=== PATIENT | male | born 1945 | race Caucasian/White ===

== ENCOUNTER 2019-04-27 15:16 | Inpatient (IN) ==
--- NOTE | 2019-04-27 16:45 | PROVIDER DOCUMENTATION ---
HPI-Respiratory General - General Chief Complaint: Shortness of Breath Stated Complaint: FLUID Time Seen by Provider: 04/27/19 16:24 Allergies/Adverse Reactions: Patient Allergies Allergy/AdvReac Type Severity Reaction Status Date / Time No Known Allergies Allergy Verified 08/07/17 16:28 Home Medications: Home Medication List Medication Instructions Recorded Confirmed Last Taken Type Pantoprazole [Protonix] 40 mg PO DAILY 08/13/16 04/27/19 08/07/17 08:00 History Tamsulosin [Flomax] 0.4 mg PO DAILY 08/13/16 04/27/19 08/07/17 08:00 History Acetaminophen [Tylenol] 500 mg PO PRN PRN 08/07/17 04/27/19 Unknown History Albuterol 2.5MG/Ipratrop 0.5MG 3 ml INH RTQ4H #100 neb 08/10/17 04/27/19 Unknown Rx [Duoneb (A & A)] Metoprolol Succinate E.r. [Toprol 25 mg PO HS tablet 08/10/17 04/27/19 Unknown Rx Xl] Metoprolol Succinate E.r. [Toprol 50 mg PO DAILY tablet 08/10/17 04/27/19 Unknown Rx Xl] Pregabalin [Lyrica] 50 mg PO HS PRN PRN capsule 08/10/17 04/27/19 Unknown Rx Zolpidem [Ambien] 10 mg PO HS tablet 08/10/17 04/27/19 Unknown Rx Clopidogrel Bisulfate [Plavix] 75 mg PO DAILY 04/27/19 04/27/19 Unknown History Levalbuterol Neb [Xopenex Neb] 1.25 mg NEB Q3HR 04/27/19 04/27/19 Unknown History Rosuvastatin Calcium [Crestor] 20 mg PO DAILY 04/27/19 04/27/19 Unknown History - History of Present Illness-Resp Nature of Presenting Problem: 74y/o male with background h/o DM, HTN, HLD, Gerd, Lung Ca diagnosed in 2016 s/p chemotherapy reports SOB of about 3 weeks duration. He states he had lung infection based on PET scan done and had completed a 10 day course of levaquine 3 days ago. He was recently placed on Zpak about 2 days ago due to persistence of sxs and later had CXR and CT lungs which revealed plural effusion on the right lung with evidence of lung cancer and has been sent to the ER for thoracentesis Quality of Pain: reports: other (SOB- See HPI) Onset/Duration: reports: other (SOB of about 3 weeks duration) Timing: reports: still present Cough Quality/Degree: reports: no cough Episode Frequency: occasional episodes Modifying Factors: improves with: nothing Associated Symptoms: reports: shortness of breath (as his only complaint) Similar Symptoms Previously?: Yes (about 3 yrs ago) Review of Systems - Adult - REVIEW OF SYSTEMS - ADULT Constitutional: reports: see HPI Eyes: reports: no symptoms reported Ears, Nose, Mouth & Throat: reports: no symptoms reported Cardiovascular: reports: no symptoms reported Respiratory: reports: shortness of breath Gastrointestinal: reports: no symptoms reported Genitourinary: reports: no symptoms reported Musculoskeletal: reports: no symptoms reported Integumentary: reports: no symptoms reported Neurological: reports: no symptoms reported Psychiatric: reports: no symptoms reported All Other Systems: Reviewed and Negative Past History - Adult - PAST MEDICAL HISTORY-ADULT Review of Records: reports: Nursing Assessment Review, Medications Reviewed, Social history reviewed & non-contributory. Cardiovascular: reports: CAD (s/p Stent placement in 2018), hyperlipidemia Respiratory: reports: lung disease (ca lung) Gastrointestinal: reports: GERD Genitourinary: reports: other (urinary retension improved on flomax) Musculoskeletal: reports: denies history Neurological: reports: denies history Psychiatric: reports: denies history Diabetes Type: Type 2 - PRIOR SURGERIES/PROCEDURES Surgical/Procedure History: reports: cardiac stent (2018), other (thoracentesis about 3 yrs ago) - IMMUNIZATION STATUS Childhood Immunizations: See Nurse Assessment Flu Vaccine: See Nurse Assessment - FAMILY HISTORY Family History: reviewed, not pertinent - SOCIAL HISTORY Smoking: cigarettes (smoked for many years. started in child nuñez and quit 4years ago) Substance Use: none/never Alcohol Use Frequency: never Living Situation: family Physical Exam-General - CONSTITUTIONAL General Appearance: alert, no apparent distress (but on 2 liter 02 NC) - EYES Eyes: PERRL/EOMI - HEAD, EARS, NOSE, MOUTH & THROAT HENMT: normocephalic/atraumatic - NECK Neck: non-tender, full range of motion - RESPIRATORY Respiratory: chest non-tender, decreased breath sounds (right side), crackles (right side) - CARDIOVASCULAR Cardiovascular: regular rate, rhythm, no edema, no JVD - GASTROINTESTINAL (ABDOMEN) Abdominal Exam: non tender, soft, no organomegaly - MUSCULOSKELETAL Back Exam: normal inspection Extremity: non-tender, no pedal edema, no calf tenderness - SKIN Integumentary: normal color - PSYCHIATRIC Psych/Mental Status: normal mood/affect, normal thought content, oriented x 3, disoriented x 3 Progress - PLAN OF CARE/RESULTS Progress/Plan/Lab Results: Vital Signs - 8 hr 04/27/19 15:21 Temperature 97.9 F Pulse Rate 97 H Respiratory Rate 23 Blood Pressure 181/72 O2 Sat by Pulse Oximetry 88 L Laboratory Results - last 24 hr 04/27/19 04/27/19 04/27/19 18:00 18:00 18:00 WBC 12.67 H RBC 3.57 L Hgb 11.9 L Hct 34.3 L MCV 96.1 MCH 33.3 H MCHC 34.7 RDW Std Deviation 13.8 Plt Count 247 MPV 10.2 Immature Gran % (Auto) 0.3 Neut % (Auto) 85.0 H Lymph % (Auto) 7.7 L [place] % (Auto) 5.0 Eos % (Auto) 1.7 Baso % (Auto) 0.3 Immature Gran # (Auto) 0.04 Neut # (Auto) 10.76 H Lymph # (Auto) 0.98 L [place] # (Auto) 0.63 H Eos # (Auto) 0.22 Baso # (Auto) 0.04 PT 14.6 INR 1.12 PTT (Actin FS) 39.4 Sodium Potassium Chloride Carbon Dioxide Anion Gap BUN Creatinine Estimated GFR/1.73 m2 BUN/Creatinine Ratio Glucose Calculated Osmolality Calcium Total Bilirubin AST ALT Alkaline Phosphatase Fox-H-Unbajlhokcv Pept Total Protein Albumin Globulin Albumin/Globulin Ratio 04/27/19 04/27/19 18:00 18:00 WBC RBC Hgb Hct MCV MCH MCHC RDW Std Deviation Plt Count MPV Immature Gran % (Auto) Neut % (Auto) Lymph % (Auto) [place] % (Auto) Eos % (Auto) Baso % (Auto) Immature Gran # (Auto) Neut # (Auto) Lymph # (Auto) [place] # (Auto) Eos # (Auto) Baso # (Auto) PT INR PTT (Actin FS) Sodium 142 Potassium 4.0 Chloride 107 Carbon Dioxide 22 L Anion Gap 13 BUN 15 Creatinine 1.0 Estimated GFR/1.73 m2 > 60 BUN/Creatinine Ratio 15 Glucose 112 H Calculated Osmolality 285 Calcium 9.4 Total Bilirubin 0.83 AST 13 ALT 13 Alkaline Phosphatase 138 H [id number]-[id number] Pept 1770 H Total Protein 7.3 Albumin 3.8 Globulin 3.5 Albumin/Globulin Ratio 1.1 Orders Category Date Time Status CBC WITH DIFF [HEME] Stat Lab 04/27/19 18:00 Completed CMP [COMPREHENSIVE METABOLIC PANEL] [CHEM] Stat Lab 04/27/19 18:00 Completed PRO B-NATRIURETIC PEPTIDE Stat Lab 04/27/19 18:00 Completed PROTIME WITH INR [COAG] Stat Lab 04/27/19 18:00 Completed PTT [COAG] Stat Lab 04/27/19 18:00 Completed Lung Ca diagnosed in 2016 s/p chemotherapy reports SOB of about 3 weeks duration. recent xray reveals CXR pneumonia right lung and CT lungs which revealed plural effusion on the right lung with evidence of lung cancer and he is being considered for thoracentesis Result Diagrams: 04/27/19 18:00 04/27/19 18:00 - EKG 1 Time of EKG reading by physician:: 15:30 [place]: normal ME Interval: normal ST Wave: non-specific ST changes - XRAY 1 XRAY Study: Chest Impression: See EMR Report ( Patient: EVERETT RANGEL Date: 04/26/19MR#: [id number] : 1945DM Status: REG CLIAcct#: [id number] Age/Sex: 74/MRoom/Bed: Loc: [facility] Ordering Physician: Igor Galaviz MD Family Physicia n: Erick Lopez MD Reason for Procedure: SOB,LUNG CA Signed EXAM: CHEST-2 VIEWS 04/26/2019 HISTORY: SOB,LUNG CA TECHNIQUE: PA and lateral chest COMMENT: There is blunting of the right costophrenic angle laterally which was also present on 06/23/2018 and is probably at least in part due to fibrosis. Compared to the previous study there is more basilar opacity in the lower lobes with obscuration of the left hemidiaphragm. There is more opacity in the lower mid lung field on the right side than on the previous study. The heart size and pulmonary vascularity are within normal limits. IMPRESSION: Bibasilar atelectasis versus pneumonia superimposed on fibrotic changes. Electronically signed by Martin Ellis 04/26/2019 2:34 PM 04/26/19 1434 Interpreting Physician: Martin Ellis MD Dictated Date/Time: 04/26/19 1432 cc: Igro Galaviz MD; Erick Lopez MD) - CT/MRI 1 CT Study: other (chest) Impression: See EMR Report ( Patient: EVERETT RANGEL Date: 04/27/19MR#: [id number] : 1945DM Status[facility] CLIAcct#: [id number] Age/Sex: 74/MRoom/Bed: Loc: CT Ordering Physician: Igor Galaviz MD Family Physician: Erick Lopez MD Reason for Procedure: malignant neoplasm of bronchus and lung Signed EXAM: CT THORAX W/CONTRAST 04/27/2019 HISTORY: malignant neoplasm of bronchus and lung TECHNIQUE: This exam was performed using automated exposure control, adjustment of mA or kV according to patient size, and/or use of iterative reconstruction technique. COMMENT: The current study is compared with the previous examination of 02/07/2018. There are atherosclerotic calcifications in the aorta and its branches. There are nonspecific aorticopulmonary window nodes one of which measures over 16 mm in long axis. This has increased in size since the previous examination. There are some calcified nodes in the precarinal and right hilar region. There is a small amount of pleural fluid on the left and a larger effusion on the right. The latter may be partially loculated. There is also some fluid apparently loculated in the anterior medial left pleural space. There are severe emphysematous changes. There is narrowing of the bronchus intermedius. There has been some improvement in this regard since the previous examination. There are multiple irregular opacities present in the right upper lobe most notably laterally on image 81. This was not present at the time the previous study. It measures 18 mm in diameter. There are several scattered granulomata which have not changed in appearance since the previous studies. There is pleural thickening and volume loss in the right middle lobe which was not present previously. The regional skeleton is stable in appearance. IMPRESSION: Improved narrowing of the bronchus intermedius. Worsened pleural fluid collections. New opacities in the right upper lobe, the possibility of recurrent or metachronous malignancy cannot be excluded. Electronically signed by Martin Ellis 04/27/2019 1:12 PM 04/27/19 1312 Interpreting Physician: Martin Ellis MD Dictated Date/Time: 04/27/19 1305 cc: Igor Galaivz MD; Erick Lopez MD) - CONSULTS/PCP/HOSPITALIST Notification #1 *Consult/PCP/Hospitalist*: [place] Time Discussed: 18:00 Consult Disposition: Admit Departure - Departure Date of Disposition Decision: 04/27/19 Time of Disposition Decision: 18:00 DIAGNOSIS: SOB (shortness of breath), Pleural effusion Lung cancer Qualifiers: Laterality: unspecified laterality Lung location: unspecified part of lung Qualified Code(s): C34.90 - Malignant neoplasm of unspecified part of unspe cified bronchus or lung Disposition: ADMITTED INPATIENT 09 Certified Medical Emergency: Emergent Condition: Fair Referrals and Follow-Ups: Erick Lopez MD [Primary Care Provider] - - Critical Care Note This patient required my direct & personal management of CC.: Yes Total Time (mins): 45 Critical Care Statement: This patient required my direct personal management to treat or rule out processes, the absence of which, could potentiallly result in sudden, clinically significant life or limb threatening deterioration. Attestation - Physician/ SENDY Attestation Patient care was provided by Advanced Practice Provider:: No The physician spent face to face time with patient:: Yes Advanced Practice Provider documentation review:: Supervising physician onsite and consulted in the evaluation and care of this patient. The physician did have a face to face encounter with the patient.
[2019-04-27 18:21] LABS: BASO# 0.04 X1000 (0.0-0.2); BASO% 0.3 % (0.0-0.8); EOS# 0.22 X1000 (0.0-0.7); EOS% 1.7 % (0.0-10.0); HEMATOCRIT 34.3 % (42.0-52.0); HEMOGLOBIN 11.9 g/dL (14.0-18.0); IMM GRAN# 0.04 X1000 (0.0-0.04); IMM GRAN% 0.3 % (0.0-0.5); LYMPH# 0.98 X1000 (1.2-3.4); LYMPH% 7.7 % (20.5-51.1); MCH 33.3 PG (27-31); MCHC 34.7 g/dL (33-37); MCV 96.1 FL (81-99); MONO# 0.63 X1000 (0.11-0.59); MPV 10.2 FL (7.4-10.4); NEUT# 10.76 X1000 (1.4-6.5); PLT 247 X1000 (130-400); RBC 3.57 XMIL (4.7-6.1); RDW 13.8 % (11.5-14.5); WBC 12.67 X1000 (4.8-10.8)
[2019-04-27 18:28] LABS: INR 1.12; PROTIME 14.6 Seconds (11.0-16.0)
[2019-04-27 18:56] LABS: AGAP 13; ALB/GLOB RATIO 1.1; ALBUMIN 3.8 g/dL (3.5-5.0); ALKALINE PHOSPHATASE 138 U/L (32-122); BUN 15 mg/dL (8-22); CALCIUM 9.4 mg/dL (8.8-10.2); CHLORIDE 107 mmol/L (98-107); COSMO 285; ESTIMATED GFR > 60; GLUCOSE 112 mg/dL (70-104); GOT 13 U/L (10-34); GPT 13 U/L (10-44); SODIUM 142 mmol/L (136-145); TCO2 22 mmol/L (25-35); TOTAL BILIRUBIN 0.83 mg/dL (0.20-1.00); TOTAL PROTEIN 7.3 g/dL (6.3-8.3)
[2019-04-27] MEDS ORDERED: VANCOMYCIN 1 GM/NS 1 GM/250 ML IVPB IV ONE (20:25)
[2019-04-27] MEDS ORDERED: ZOFRAN IV PRN ×2 (20:25→22:35)
[2019-04-27] MEDS ORDERED: TYLENOL PO PRN (20:25)
[2019-04-27] MEDS ORDERED: VANCOMYCIN IV PER PHARMACY MISC SCH (20:30)
[2019-04-27] MEDS ORDERED: TOPROL XL PO SCH ×2 (21:00)
[2019-04-27] MEDS ORDERED: AMBIEN PO SCH ×2 (21:00)
[2019-04-27] MEDS ORDERED: MAXIPIME 2 GM in NS 100 ML IV SCH ×2 (21:30→22:45)
--- NOTE | 2019-04-27 21:33 | HISTORY AND PHYSICAL ---
Patient of Dr. Galaviz. Patient of Dr. Lopez. REASON FOR ADMISSION: Progressively worsening shortness of breath for the last 2 weeks. HISTORY OF PRESENT ILLNESS: Mr. Todd Lemus is a 74-year-old man with past medical history of adenocarcinoma of the lung, COPD, paroxysmal atrial fibrillation, coronary artery disease, BPH, type 2 diabetes, hypertension, reflux disease, peripheral neuropathy. For the last 2 weeks, he has been having progressively worsening shortness of breath. He was treated with a 10 day course of 500 mg a day Levaquin without any improvement. As a result of this, he was started on recently Zithromax yesterday. This has not improved his overall symptoms. He then underwent a chest film yesterday, ordered by Dr. Galaviz, and subsequently a CT scan earlier today. Based on the CT scan findings, there is progressive worsening of the right pleural effusion and possible pneumonia versus new malignancy in the right lung, he was advised to come to the ER to get admitted for possible diagnostic/therapeutic thoracentesis. Patient denies any weight loss, any fever or chills, any chest pain. He does admit to having a cough which is productive of whitish sputum, but less than 2 weeks ago was productive of a brownish sputum. He denies any orthopnea or PND or leg swelling. REVIEW OF SYSTEMS: Grossly unremarkable for any symptoms referable to the GI, or neurological systems. No polyuria or polydipsia. No arthralgia or rash. ALLERGIES: No known allergies. HOME MEDICATIONS: He is on: 1. Ambien 10 mg daily. 2. Metoprolol 50 mg a day and 25 mg at bedtime. 3. Lyrica 50 mg at bedtime p.r.n. 4. DuoNeb q.4. 5. Tylenol 500 mg p.r.n. 6. Protonix 40 mg daily. 7. Plavix 75 mg daily. 8. Flomax 0.4 mg daily. 9. Crestor 20 mg daily. 10. Xopenex p.r.n. SURGICAL HISTORY: Has had a robotic right partial pneumonectomy with mediastinotomy, and has had a coronary artery stent. FAMILY HISTORY: Notable for cancer of the breast, lung, and ovary. Positive history of strokes and diabetes in first-degree relatives. SOCIAL HISTORY: Stopped smoking 4 years ago. No alcohol use, no drug use. . LABORATORY WORK: CT scan of the chest shows narrowing of the bronchus intermedius with worsening right pleural effusion collections, new opacities in the right upper lobe, and possibility of metachronous malignancy cannot be excluded. His chest film done yesterday showed bibasilar atelectasis versus pneumonia superimposed or fibrotic changes. Today, his white count is 12,000, up from 5000 about 2 weeks ago, hemoglobin and hematocrit 12 and 34, platelets 247,000, 5% neutrophils. BUN 15, creatinine 1.0, glucose 112, alkaline phosphatase 132, proBNP 1700, and PTT is normal. PHYSICAL EXAMINATION: VITAL SIGNS: Blood pressure is 181/72, heart rate is 97, respirations are 23, temperature is 97.9 degrees. He is 88% on 2 L. GENERAL: He is an elderly man not in acute distress, on nasal cannula. He has a normal mood and affect. HEAD: Normocephalic, atraumatic. EYES: PERRL. EOMI. He is anicteric, not pale. ENT: Exam is grossly normal. Some cyanosis. NECK: Supple. No JVD or carotid bruit. No thyromegaly. CHEST: Decreased entry in both lung franco, but more so on the right compared to the left. He also has scattered crepitations in the lower half of his lungs and scattered wheezes. CARDIOVASCULAR: First and second heart sounds heard. No gallops, murmurs, rubs. Rhythm is regular. ABDOMEN: Slightly protuberant, soft. No tenderness. No mass or organomegaly. Bowel sounds are hypoactive. RECTAL: Exam is deferred at this time. EXTREMITIES: Patient has 1+ pitting edema in both lower extremities with good pulse volumes distally. No clubbing or peripheral cyanosis. Mild tremors. NEUROLOGICAL: No gross focal deficits. SKIN: Intact. No breakdown, lesions or erythema. VASCULAR: Grossly normal. ASSESSMENT: 1. Acute on chronic dyspnea, probably secondary to new onset pneumonia(?nosocomial) versus progression of underlying malignancy. 2. Right pleural effusion, malignant versus parapneumonic. 3. Coronary artery disease. 4. Chronic obstructive pulmonary disease. 5. Benign prostatic hypertrophy. 6. Paroxysmal atrial fibrillation. 7. Type 2 diabetes. 8. Hypertension. PLAN: 1. The patient will undergo therapeutic and diagnostic thoracentesis, ultrasound-guided, in the morning. This is to rule out malignancy versus complicated parapneumonic effusion. 2. In the interim, will start patient on Maxipime and Vancomycin to cover for nosocomial pathogens. Patient has been exposed to 2 antibiotics recently. 3. Start patient on short-acting and long-acting bronchodilators. 4. Will resume patient's antiplatelet and beta-veronique treatment and statins for his coronary artery disease. 5. Repeat labs in the morning to see if white count has improved and if patient's overall clinical picture has improved. 6. Based on findings of thoracentesis, treatment will be modified accordingly. 7. Dr. Galaviz may need to be contacted if findings unfortunately are suggestive of a malignant effusion. cc: MD Dr. Guillaume Cruz Dr.
[2019-04-27] MEDS ORDERED: VANCOMYCIN 1,500 MG in NS 250 ML IV ONE (22:00)
[2019-04-27] MEDS ORDERED: DUONEB (A & A) INH SCH (22:00)
[2019-04-27] MEDS: HUMALOG SUBQ SCH (22:13)
[2019-04-28] MEDS: DUONEB (A & A) INH SCH ×3 (03:55→09:46)
[2019-04-28] MEDS: HUMALOG SUBQ SCH (06:07)
[2019-04-28] MEDS ORDERED: PRILOSEC PO SCH ×2 (07:00)
[2019-04-28] MEDS ORDERED: BROVANA NEB INH SCH ×2 (07:30)
[2019-04-28 07:34] LABS: BASO# 0.03 X1000 (0.0-0.2); BASO% 0.4 % (0.0-0.8); EOS# 0.29 X1000 (0.0-0.7); EOS% 3.5 % (0.0-10.0); HEMATOCRIT 33.3 % (42.0-52.0); HEMOGLOBIN 11.2 g/dL (14.0-18.0); IMM GRAN# 0.03 X1000 (0.0-0.04); IMM GRAN% 0.4 % (0.0-0.5); LYMPH# 0.93 X1000 (1.2-3.4); LYMPH% 11.2 % (20.5-51.1); MCH 32.1 PG (27-31); MCHC 33.6 g/dL (33-37); MCV 95.4 FL (81-99); MPV 10.4 FL (7.4-10.4); NEUT# 6.54 X1000 (1.4-6.5); NEUT% 78.5 % (42.2-75.2); PLT 231 X1000 (130-400); RBC 3.49 XMIL (4.7-6.1); RDW 13.7 % (11.5-14.5); WBC 8.32 X1000 (4.8-10.8)
[2019-04-28] MEDS ORDERED: BROVANA NEB ONE ×2 (07:34)
[2019-04-28 07:52] VITALS: BP 141/66
[2019-04-28 07:53] LABS: AGAP 6; BUN 13 mg/dL (8-22); CALCIUM 8.8 mg/dL (8.8-10.2); CHLORIDE 108 mmol/L (98-107); COSMO 281; CREATININE 0.8 mg/dL (0.7-1.2); ESTIMATED GFR > 60; GLUCOSE 134 mg/dL (70-104); POTASSIUM 3.8 mmol/L (3.5-5.1); SODIUM 140 mmol/L (136-145); TCO2 26 mmol/L (25-35)
[2019-04-28] MEDS ORDERED: CRESTOR PO SCH ×2 (09:00)
[2019-04-28] MEDS ORDERED: PLAVIX PO SCH ×2 (09:00)
[2019-04-28] MEDS ORDERED: FLOMAX PO SCH ×2 (09:00)
[2019-04-28] MEDS ORDERED: TOPROL XL PO SCH (09:00)
[2019-04-28] MEDS ORDERED: HEPARIN SUBQ SCH ×2 (09:00→21:00)
--- NOTE | 2019-04-28 13:51 | DISCHARGE SUMMARY ---
ADMISSION DATE: 04/27/2019 DISCHARGE DATE: 04/28/2019 FINAL DIAGNOSES: Right pleural effusion, history of lung cancer, COPD, hypertension. HISTORY: This is one of several [facility] admissions for this 74-year-old white man with history of lung cancer, who developed some shortness of breath and was seen yesterday by Dr. Galaviz, oncologist. He had a CT scan of his chest revealing a right pleural effusion at the right base. He was sent to the emergency room for admission and ultrasound-guided thoracentesis this morning. Radiology was not available to do thoracentesis until Tuesday. Discussion was made with Dr. Hernandez who was on-call for Pulmonary. His O2 saturation has been fairly stable, ranging from 88 to 94 and currently is 94% on 2 liters nasal oxygen. He has oxygen at home. He has had no fever or chills. LABORATORY REPORTS: Hemoglobin 11.2, hematocrit 33.3, white blood count 8300, sodium 140, potassium 3.8, BUN 13, creatinine 0.8, glucose 129. ProBNP 1770. Decision was made to send him home today on his usual medicines, to contact Dr. Galaviz on Tuesday and arrange for thoracentesis early next week. He is encouraged to come back to the emergency room for admission if his shortness of breath worsens. cc: MD Erick Antony MD
[2019-04-28] MEDS ORDERED: VANCOMYCIN 2,100 MG in NS 500 ML IV SCH (16:00)
--- NOTE | 2019-04-30 11:06 | EKG Report ---
Test Performed on : 04/27/2019 3:28:18 PM Test Reason : CP Blood Pressure : / mmHG Vent. Rate : 094 BPM Atrial Rate : 094 BPM P-R Int : 152 ms QRS Dur : 076 ms QT Int : 348 ms P-R-T Axes : 061 -17 066 degrees QTc Int : 435 ms Normal sinus rhythm. Anterior infarct (cited on or before 24-JUN-2018) Abnormal ECG When compared with ECG of 26-JUN-2018 10:54, Vent. rate has increased BY 36 BPM Nonspecific T wave abnormality no longer evident in Inferior leads T wave inversion no longer evident in Lateral leads Unconfirmed Result
== END 2019-04-28 11:54 | disposition home or self-care (01) | DRG 188 ==
LOC: ED 15:16 → SUATTDRO 20:56 → 1N 20:56
PROVIDERS: ADMIT Family Medicine; ATTEND Family Medicine